=== PATIENT | female | born 1975 | race Caucasian/White ===

== ENCOUNTER 2017-06-27 08:46 | Inpatient (IN) ==
[2017-06-27] MEDS ORDERED: Ondansetron 4 MG/2 ML VIAL IVP ONE (08:58)
[2017-06-27] MEDS ORDERED: 0.9 % Sodium Chloride 1,000 ML IVC ONE (08:58)
--- NOTE | 2017-06-27 09:07 | Emergency Department Note ---
Disposition Clinical Impression: Dehydration, Metabolic acidosis, Hypokalemia Disposition: Admitted As Inpatient Condition: Good Referrals: Ava Ruiz, COMPUTER SCIENCE PROFESSOR [Primary Care Provider] - Forms: Work/School Release, ED Satisfaction Letter Time of Disposition: 11:30 Abdominal Pain HPI - General Chief Complaint: ED Abdominal Pain Stated Complaint: stomach pain, nausea and vomiting Source: patient - History of Present Illness HPI Narrative: Patient presents to the emergency department for evaluation of nausea and vomiting. She states that she is been having nausea and vomiting since Friday. Denies blood in her stool or blood in her emesis. She states that her last bowel movement was several days ago. She complains of some minimal intermittent cramping in the epigastric region but denies any significant pain. She denies chest pain shortness of breath or diaphoresis. She denies dysuria or urinary frequency urgency or decreased urination. She denies fever or chills. She states that she is been diagnosed with gastroparesis and this is similar to her episodes related to her gastroparesis in the past. She has seen gastroenterology in the past and was being considered for gastric pacemaker at that time, she has a follow-up appointment with a second diamond broker in the future. She is been prescribed Reglan in the past but states that she could not tolerate that medication and therefore she does not currently take any medication for her gastroparesis. Pain Scale: 6 - Related Data Home Medications Medication Instructions Recorded Confirmed Acetaminophen w/Cod 300-30 mg 1 each PO Q6HR PRN 10/26/15 06/27/17 [Tylenol w/Codeine #3] Linagliptin [Tradjenta] 5 mg PO DAILY 06/27/17 06/27/17 hydroCHLOROthiazide 25 mg PO DAILY 06/27/17 06/27/17 [Hydrochlorothiazide] Previous Rx's Medication Instructions Recorded Promethazine [Phenergan] 25 mg PO Q6HR PRN #14 tablet 11/26/16 Allergies Allergy/AdvReac Type Severity Reaction Status Date / Time sulfamethoxazole Allergy Rash Verified 10/26/15 21:14 [From Bactrim] trimethoprim [From Bactrim] Allergy Rash Verified 10/26/15 21:14 scopolamine AdvReac Hallucinati Verified 10/26/15 21:14 ng Constitutional: Denies: fever, chills Eyes: Denies: vision change ENT ED: Denies: congestion Cardiovascular: Denies: chest pain, palpitations Respiratory: Denies: cough Gastrointestinal: Reports: as per HPI Genitourinary: Denies: dysuria, frequency, hematuria, discharge Musculoskeletal: Denies: back pain, neck pain, arthralgia, myalgia Integumentary: Denies: rash, abrasion, lesions Neurological: Denies: headache Endocrine: Denies: fatigue Abdominal Pain PMH - Past Medical History Medical history: Reports: diabetes, other Female Surgical History: Reports: , cholecystectomy, hysterectomy, orthopedic, other, Tonsillectomy PLANNING ASSOCIATE history: Reports: non-contributory Psychiatric history: Reports: no psych history - Social History Smoking status: Current every day smoker Alcohol use: Reports: occasionally Drug use: Reports: none Physical Exam - General Limitations: no limitations General appearance: alert, in no apparent distress - Eye Eye exam: Present: normal appearance, PERRL, EOMI - ENT ENT exam: normal exam, normal oropharynx, mucous membranes moist - Respiratory Respiratory exam: Present: normal lung sounds bilaterally - Cardiovascular Cardiovascular exam: Present: regular rate, normal rhythm, normal heart sounds - Abdominal Exam Abdominal exam: Present: soft, Non-Tender, normal bowel sounds. Absent: tenderness, distention, guarding, rebound, rigidity - Extremities Exam Extremities exam: Present: normal inspection, full ROM. Absent: tenderness, pedal edema, calf tenderness - Expanded Lower Extremity Exam Neurovascular/Tendon exam: Present: normal capillary refill - Neurological Exam Neurological exam: Present: alert, oriented X3 - Psychiatric Psychiatric exam: Present: normal affect, normal mood - Skin Skin exam: Present: warm, dry, intact, normal color Course Course Narrative: Patient resting comfortably, patient does have a metabolic acidosis with positive ketones though pH is not significantly abnormal and glucose is only 269. I discussed the case with Dr. Lombardo, we will defer an insulin drip at this time and treat with fluids and electrolyte replacement and monitor her response to that treatment at this time. Vital Signs Temperature 98.8 F 06/27/17 08:48 Pulse Rate 109 06/27/17 08:48 Respiratory Rate 16 06/27/17 08:48 Blood Pressure 119/86 06/27/17 08:48 O2 Sat by Pulse Oximetry 98 06/27/17 08:48 Temperature 98.8 F 06/27/17 08:48 Pulse Rate 88 06/27/17 11:26 Respiratory Rate 17 06/27/17 11:26 Blood Pressure 123/52 06/27/17 11:26 O2 Sat by Pulse Oximetry 97 06/27/17 11:26 Oxygen Delivery Oxygen Delivery Room Air Abdominal Pain - Lab Data Lab results reviewed: Yes I reviewed the patient's lab results. Result diagrams: 06/27/17 09:08 06/27/17 09:08 Lab Results 06/27/17 06/27/17 06/27/17 Range/Units 09:05 09:08 09:08 WBC 10.3 (4.3-11.1) K/mcL RBC 4.99 H (3.82-4.97) M/mcL Hgb 15.8 H (11.5-15.4) g/dL Hct 43.5 (35.3-44.9) % MCV 87.2 (83.0-100.0) fL MCH 31.7 (28.0-33.3) pg MCHC 36.3 H (31.6-35.5) g/dL RDW 12.5 (11.5-14.5) % Plt Count 246 (140-400) K/mcL MPV 9.7 (9.4-12.4) fL Immature Gran % 0.6 (0-4) % Seg Neutrophils % 68.7 % Lymphocytes % 19.1 % Monocytes % 9.6 % Eosinophils % 1.3 % Basophils % 0.7 % Neutrophils # 7.1 (1.6-8.9) K/mcL Lymphocytes # 2.0 (0.6-4.6) K/mcL Monocytes # 1.0 (0.0-1.3) K/mcL Eosinophils # 0.1 (0.0-0.6) K/mcL Basophils # 0.1 (0.0-0.2) K/mcL VBG pH (7.32-7.42) pH Units VBG pCO2 (41-51) mmHg VBG pO2 (25-40) mmHg VBG HCO3 (21-27) mEq/L Sodium 136 (136-145) mEq/L Potassium 2.9 L (3.5-4.5) mEq/L Chloride 97 L (98-109) mEq/L Carbon Dioxide 16 L (19-29) mEq/L BUN 5 L (7-20) mg/dL Creatinine 0.71 (0.57-1.11) mg/dL Est GFR ( Amer) > 60 (> 60) Est GFR (Non-Af Amer) > 60 (> 60) BUN/Creatinine Ratio 7 (6-26) Glucose 269 H (70-99) mg/dL Calculated Osmolality 289 (280-300) Calcium 9.3 (8.6-10.8) mg/dL Total Bilirubin 0.7 (0.2-1.2) mg/dL Direct Bilirubin 0.3 (0.0-0.5) mg/dL Indirect Bilirubin 0.4 (0.0-1.2) mg/dL AST 13 (5-34) Units/L ALT 15 (0-55) Units/L Alkaline Phosphatase 44 (38-126) Units/L Troponin I (0-0.03) ng/mL Serum Total Protein 7.0 (6.0-8.3) g/dL Albumin 3.7 (3.5-5.0) g/dL Globulin 3.3 (2.4-3.5) g/dL Albumin/Globulin Ratio 1.1 (1.1-2.2) Amylase 46 (25-125) Units/L Lipase 12 (8-78) Units/L Beta-Hydroxybutyric Acd (0.02-0.27) mmol/L Urine Color Yellow (Yellow) Urine Clarity Clear (Clear) Urine pH 6.0 (5.0-8.0) pH Units Ur Specific Nimitz 1.020 (1.010-1.025) Urine Protein 30 H (Neg-Trace) mg/dL Urine Glucose (UA) 500 H (Normal) mg/dL Urine Ketones >=160 H (Negative) mg/dL Urine Blood Trace-lysed H (Negative) Urine Nitrite Negative (Negative) Urine Bilirubin Moderate H (Negative) Urine Urobilinogen Normal (Normal) mg/dL Ur Leukocyte Esterase Negative (Negative) Urine Microscopic RBC 0-3 (0-3) per hpf Urine Microscopic WBC 5-15 H (0-3) per hpf Ur Squamous Epith Cells Few (None-Few) per lpf Urine Bacteria Few (None-Few) per hpf Hyaline Casts Few (None-Few) per lpf Granular Casts Few H (None Seen) per lpf Urine Mucus Moderate H (Few) Ur Culture Indicated? YES A (NO) Urine Test (Negative) Salicylates (15-30) mg/dL 06/27/17 06/27/17 06/27/17 Range/Units 09:08 09:10 09:26 WBC (4.3-11.1) K/mcL RBC (3.82-4.97) M/mcL Hgb (11.5-15.4) g/dL Hct (35.3-44.9) % MCV (83.0-100.0) fL MCH (28.0-33.3) pg MCHC (31.6-35.5) g/dL RDW (11.5-14.5) % Plt Count (140-400) K/mcL MPV (9.4-12.4) fL Immature Gran % (0-4) % Seg Neutrophils % % Lymphocytes % % Monocytes % % Eosinophils % % Basophils % % Neutrophils # (1.6-8.9) K/mcL Lymphocytes # (0.6-4.6) K/mcL Monocytes # (0.0-1.3) K/mcL Eosinophils # (0.0-0.6) K/mcL Basophils # (0.0-0.2) K/mcL VBG pH (7.32-7.42) pH Units VBG pCO2 (41-51) mmHg VBG pO2 (25-40) mmHg VBG HCO3 (21-27) mEq/L Sodium (136-145) mEq/L Potassium (3.5-4.5) mEq/L Chloride (98-109) mEq/L Carbon Dioxide (19-29) mEq/L BUN (7-20) mg/dL Creatinine (0.57-1.11) mg/dL Est GFR ( Amer) (> 60) Est GFR (Non-Af Amer) (> 60) BUN/Creatinine Ratio (6-26) Glucose (70-99) mg/dL Calculated Osmolality (280-300) Calcium (8.6-10.8) mg/dL Total Bilirubin (0.2-1.2) mg/dL Direct Bilirubin (0.0-0.5) mg/dL Indirect Bilirubin (0.0-1.2) mg/dL AST (5-34) Units/L ALT (0-55) Units/L Alkaline Phosphatase (38-126) Units/L Troponin I 0.00 (0-0.03) ng/mL Serum Total Protein (6.0-8.3) g/dL Albumin (3.5-5.0) g/dL Globulin (2.4-3.5) g/dL Albumin/Globulin Ratio (1.1-2.2) Amylase (25-125) Units/L Lipase (8-78) Units/L Beta-Hydroxybutyric Acd > 2.00 H (0.02-0.27) mmol/L Urine Color (Yellow) Urine Clarity (Clear) Urine pH (5.0-8.0) pH Units Ur Specific Nimitz (1.010-1.025) Urine Protein (Neg-Trace) mg/dL Urine Glucose (UA) (Normal) mg/dL Urine Ketones (Negative) mg/dL Urine Blood (Negative) Urine Nitrite (Negative) Urine Bilirubin (Negative) Urine Urobilinogen (Normal) mg/dL Ur Leukocyte Esterase (Negative) Urine Microscopic RBC (0-3) per hpf Urine Microscopic WBC (0-3) per hpf Ur Squamous Epith Cells (None-Few) per lpf Urine Bacteria (None-Few) per hpf Hyaline Casts (None-Few) per lpf Granular Casts (None Seen) per lpf Urine Mucus (Few) Ur Culture Indicated? (NO) Urine Test Negative (Negative) Salicylates (15-30) mg/dL 06/27/17 06/27/17 Range/Units 10:18 10:18 WBC (4.3-11.1) K/mcL RBC (3.82-4.97) M/mcL Hgb (11.5-15.4) g/dL Hct (35.3-44.9) % MCV (83.0-100.0) fL MCH (28.0-33.3) pg MCHC (31.6-35.5) g/dL RDW (11.5-14.5) % Plt Count (140-400) K/mcL MPV (9.4-12.4) fL Immature Gran % (0-4) % Seg Neutrophils % % Lymphocytes % % Monocytes % % Eosinophils % % Basophils % % Neutrophils # (1.6-8.9) K/mcL Lymphocytes # (0.6-4.6) K/mcL Monocytes # (0.0-1.3) K/mcL Eosinophils # (0.0-0.6) K/mcL Basophils # (0.0-0.2) K/mcL VBG pH 7.36 (7.32-7.42) pH Units VBG pCO2 41.7 (41-51) mmHg VBG pO2 31.2 (25-40) mmHg VBG HCO3 23.6 (21-27) mEq/L Sodium (136-145) mEq/L Potassium (3.5-4.5) mEq/L Chloride (98-109) mEq/L Carbon Dioxide (19-29) mEq/L BUN (7-20) mg/dL Creatinine (0.57-1.11) mg/dL Est GFR ( Amer) (> 60) Est GFR (Non-Af Amer) (> 60) BUN/Creatinine Ratio (6-26) Glucose (70-99) mg/dL Calculated Osmolality (280-300) Calcium (8.6-10.8) mg/dL Total Bilirubin (0.2-1.2) mg/dL Direct Bilirubin (0.0-0.5) mg/dL Indirect Bilirubin (0.0-1.2) mg/dL AST (5-34) Units/L ALT (0-55) Units/L Alkaline Phosphatase (38-126) Units/L Troponin I (0-0.03) ng/mL Serum Total Protein (6.0-8.3) g/dL Albumin (3.5-5.0) g/dL Globulin (2.4-3.5) g/dL Albumin/Globulin Ratio (1.1-2.2) Amylase (25-125) Units/L Lipase (8-78) Units/L Beta-Hydroxybutyric Acd (0.02-0.27) mmol/L Urine Color (Yellow) Urine Clarity (Clear) Urine pH (5.0-8.0) pH Units Ur Specific Nimitz (1.010-1.025) Urine Protein (Neg-Trace) mg/dL Urine Glucose (UA) (Normal) mg/dL Urine Ketones (Negative) mg/dL Urine Blood (Negative) Urine Nitrite (Negative) Urine Bilirubin (Negative) Urine Urobilinogen (Normal) mg/dL Ur Leukocyte Esterase (Negative) Urine Microscopic RBC (0-3) per hpf Urine Microscopic WBC (0-3) per hpf Ur Squamous Epith Cells (None-Few) per lpf Urine Bacteria (None-Few) per hpf Hyaline Casts (None-Few) per lpf Granular Casts (None Seen) per lpf Urine Mucus (Few) Ur Culture Indicated? (NO) Urine Test (Negative) Salicylates < 5.0 L (15-30) mg/dL ITS Impressions Abdomen/Pelvis CT 06/27/17 09:00 IMPRESSION: 1. Bilateral nephrolithiasis. 2. Constipation. D/ / Wu Graf MD / Wu Graf MD Interpreting Provider: Wu Graf MD - Radiology Data Radiology results reviewed: Yes I reviewed the patient's radiology results.
[2017-06-27 09:17] LABS: Bilirubin,Urine Moderate (Negative); Blood,Urine Trace-lysed (Negative); Clarity,Urine Clear (Clear); Color,Urine Yellow (Yellow); Glucose,Urine (UA) 500 mg/dL (Normal); Ketones,Urine >=160 mg/dL (Negative); Leukocyte Esterase,Urine Negative (Negative); Nitrite,Urine Negative (Negative); Protein,Urine 30 mg/dL (Neg-Trace); Urobilinogen,Urine Normal (Normal)
[2017-06-27 09:28] LABS: Basophils # 0.1 K/mcL (0.0-0.2); Basophils % 0.7 %; Eosinophils # 0.1 K/mcL (0.0-0.6); Eosinophils % 1.3 %; Hematocrit 43.5 % (35.3-44.9); Hemoglobin 15.8 g/dL (11.5-15.4); Immature Granulocytes % 0.6 % (0-4); Lymphocytes % 19.1 %; Mean Corpuscular HGB Conc 36.3 g/dL (31.6-35.5); Mean Corpuscular Hemoglobin 31.7 pg (28.0-33.3); Mean Corpuscular Volume 87.2 fL (83.0-100.0); Mean Platelet Volume 9.7 fL (9.4-12.4); Monocytes % 9.6 %; Neutrophils # 7.1 K/mcL (1.6-8.9); Platelet Count 246 K/mcL (140-400); Red Blood Count 4.99 M/mcL (3.82-4.97); Red Cell Distribution Width 12.5 % (11.5-14.5); Segmented Neutrophils % 68.7 %
[2017-06-27 09:32] LABS: Bacteria,Urine Few per hpf (None-Few); Granular Casts,Urine Few per lpf (None Seen); Hyaline Casts,Urine Few per lpf (None-Few); Mucus,Urine Moderate (Few); RBC,Urine 0-3 per hpf (0-3); Squamous Epithelial Cell,Urine Few per lpf (None-Few)
[2017-06-27 09:42] LABS: Alanine Aminotransferase 15 Units/L (0-55); Albumin 3.7 g/dL (3.5-5.0); Albumin/Globulin Ratio 1.1 (1.1-2.2); Alkaline Phosphatase 44 Units/L (38-126); Amylase 46 Units/L (25-125); Aspartate Amino Transferase 13 Units/L (5-34); BUN/Creatinine Ratio 7 (6-26); Bilirubin,Direct 0.3 mg/dL (0.0-0.5); Bilirubin,Indirect 0.4 mg/dL (0.0-1.2); Bilirubin,Total 0.7 mg/dL (0.2-1.2); Calcium 9.3 mg/dL (8.6-10.8); Carbon Dioxide 16 mEq/L (19-29); Chloride 97 mEq/L (98-109); Globulin 3.3 g/dL (2.4-3.5); Glucose 269 mg/dL (70-99); Lipase 12 Units/L (8-78); Osmolality,Calculated 289 (280-300); Potassium 2.9 mEq/L (3.5-4.5); Sodium 136 mEq/L (136-145); eGFR For African Americans > 60 (> 60); eGFR For Non-African Americans > 60 (> 60)
[2017-06-27 09:53] LABS: Blood Urea Nitrogen 5 mg/dL (7-20)
[2017-06-27] MEDS ORDERED: 0.9 % Sodium Chloride w KCl 20 MEQ/1,000 ML MLS IVC SCH (10:15)
[2017-06-27] MEDS ORDERED: *HR* Promethazine 25 MG/ML VIAL IM ONE (10:32)
[2017-06-27 10:40] LABS: VBG HCO3 23.6 mEq/L (21-27); VBG PCO2 41.7 mmHg (41-51); VBG PH 7.36 pH Units (7.32-7.42); VBG PO2 31.2 mmHg (25-40)
[2017-06-27] MEDS ORDERED: Naloxone 0.4 MG/ML INJ IVP PRN (11:31)
[2017-06-27] MEDS ORDERED: *HR* Acetaminophen w/Cod 300-30 mg 1 TAB TABLET PO PRN (12:51)
[2017-06-27] MEDS ORDERED: Ondansetron 4 MG/2 ML VIAL IVP PRN (14:09)
--- NOTE | 2017-06-27 15:38 | Internal Med History&Physical ---
Date of Encounter: 06/27/17 Time of Encounter: 15:00 Assessment and Plan (1) Hypokalemia Current visit: Yes Status: Acute Suspect secondary to vomiting and use of HCTZ. She has been ordered replacement IV and oral potassium. Will recheck labs in a.m. (2) Ketonemia Current visit: No Status: Acute We will give IV fluids and recheck labs in a.m. (3) Diabetes mellitus Current visit: No Status: Acute Will check hemoglobin A1c in a.m. Continue Accu-Cheks with SSI. Qualifiers: Diabetes mellitus type: type 2 Diabetes mellitus complication status: with hyperglycemia Diabetes mellitus [facility] insulin use: without [facility] use Qualified Code(s): E11.65 - Type 2 diabetes mellitus with hyperglycemia Internal Medicine - H&P: HPI Chief complaint: Vomiting and weakness Admitted From: Home Plans for Post Hospital Care: Home History of present illness: Ms. Buchanan is a 41 year old female who came to emergency room stating she had onset of vomiting June 25. She had multiple episodes of vomiting over the next 2 days. She felt lightheaded and dizzy this morning as she was preparing to come to work. She came to emergency room and was evaluated and found to have significant hypokalemia. She was admitted to [facility] floor for ongoing care needs. She has had previous similar episodes before. She has been diagnosed with gastroparesis felt to be secondary to DM 2 which was diagnosed at age 36. Most recent hemoglobin A1c was 7.9% on 01/22/2017. She takes hydrochlorothiazide for edema but denies hypertension. Endocrine history is negative for known thyroid disease or hyperlipidemia. Past Med Surg Social Fam HX - Past Medical History Medical history: diabetes, other Psychiatric history: no psych history - Past Surgical History Surgical History: orthopedic, other - Social History Smoking Status: Current every day smoker Packs per day: 1 Smokeless Tobacco Status: No Alcohol use: occasionally Drug use: none Internal Medicine - H&P: Meds Acetaminophen w/Cod 300-30 mg [Tylenol w/Codeine #3] 1 each PO Q6HR PRN [History] Promethazine [Phenergan] 25 mg PO Q6HR PRN #14 tablet 11/26/16 [Rx] Linagliptin [Tradjenta] 5 mg PO DAILY 06/27/17 [History] hydroCHLOROthiazide [Hydrochlorothiazide] 25 mg PO DAILY 06/27/17 [History] Allergies sulfamethoxazole [From Bactrim] Allergy (Verified 10/26/15 21:14) Rash trimethoprim [From Bactrim] Allergy (Verified 10/26/15 21:14) Rash scopolamine Adverse Reaction (Verified 10/26/15 21:14) Hallucinating All Systems PM: A 10-system review of systems was performed and is negative for pertinent findings except as documented above in the HPI. Review of systems: Gen.: She states her weight had been stable for several months until an 18 pound weight loss in the last month primarily due to poor intake and recent vomiting. She reports weighing 340 pounds 5 years ago but intentionally lost weight. Cardiovascular: She has had edema and uses HCTZ. She denies hypertension MA heart failure angina DVT or pulmonary embolus Respiratory: She is smoked since age 16 up to 2 packs per day. She denies known chronic lung disease and does not use home oxygen. She has had negative testing for [facility]LROY GI: She has had cholecystectomy. She denies disorders of her liver or exocrine pancreas : She denies hematuria dysuria or kidney stones. She thinks she has a vaginal yeast infection at the present time Neurologic: No history of large distribution strokes or seizures. 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 She uses an occasional Tylenol #3. She denies gout or other bone joint or muscle disorders. - Constitutional Vitals: Temp Pulse Resp BP Pulse Ox 98.6 F 79 14 110/65 98 06/27/17 13:35 06/27/17 13:35 06/27/17 13:35 06/27/17 13:35 06/27/17 13:35 Exam: Gen.: She is a well-developed well-nourished female lying quietly in bed and appears in no acute distress HEENT: Head is atraumatic and normocephalic. Eyes: EOMI. There is no scleral icterus. Mouth: Mucosa is moist. Neck: Supple and nontender. There is no thyromegaly or adenopathy noted. Heart: Regular without murmurs gallops or ectopics Lungs: No wheezes or crackles are heard. Abdomen: Soft and nontender. No masses or guarding noted. Extremities: There is no cyanosis edema or clubbing noted. Dorsalis pedis and posttibial pulses are 1-2 over 2 bilaterally. Neurologic: Mental status: She is talkative and a good historian. Cranial nerves: Smile is symmetric. Forehead wrinkles bilaterally. Tongue protrudes midline. EOMI. Motor: There is no pronator drift. Cerebellar: Fair to nose is intact bilaterally. Skin: Warm and dry Internal Med - H&P Results - Labs CBC & Chem 7: 06/27/17 09:08 06/27/17 09:08
[2017-06-27] MEDS: 0.9 % Sodium Chloride w KCl 20 MEQ/1,000 ML MLS IVC SCH (20:11)
[2017-06-27] MEDS: Nicotine 21 MG PATCH.TD24 TD SCH (20:12)
[2017-06-28 05:17] LABS: Basophils # 0.1 K/mcL (0.0-0.2); Basophils % 0.8 %; Eosinophils # 0.2 K/mcL (0.0-0.6); Eosinophils % 2.4 %; Hemoglobin 12.8 g/dL (11.5-15.4); Immature Granulocytes % 0.8 % (0-4); Lymphocytes # 2.6 K/mcL (0.6-4.6); Lymphocytes % 40.8 %; Mean Corpuscular HGB Conc 34.6 g/dL (31.6-35.5); Mean Corpuscular Hemoglobin 31.1 pg (28.0-33.3); Mean Platelet Volume 9.8 fL (9.4-12.4); Monocytes # 0.7 K/mcL (0.0-1.3); Monocytes % 10.4 %; Neutrophils # 2.9 K/mcL (1.6-8.9); Platelet Count 190 K/mcL (140-400); Red Blood Count 4.11 M/mcL (3.82-4.97); Red Cell Distribution Width 12.8 % (11.5-14.5); Segmented Neutrophils % 44.8 %
[2017-06-28] MEDS: 0.9 % Sodium Chloride w KCl 20 MEQ/1,000 ML MLS IVC SCH (05:42)
[2017-06-28 05:45] LABS: BUN/Creatinine Ratio 8 (6-26); Calcium 8.3 mg/dL (8.6-10.8); Carbon Dioxide 19 mEq/L (19-29); Chloride 108 mEq/L (98-109); Glucose 255 mg/dL (70-99); Osmolality,Calculated 298 (280-300); Potassium 3.7 mEq/L (3.5-4.5); Sodium 141 mEq/L (136-145); eGFR For African Americans > 60 (> 60); eGFR For Non-African Americans > 60 (> 60)
[2017-06-28 05:53] LABS: Blood Urea Nitrogen 5 mg/dL (7-20)
[2017-06-28 05:55] LABS: Beta-Hydroxybutyric Acid > 2.00 mmol/L (0.02-0.27)
[2017-06-28] MEDS ORDERED: *HR* Enoxaparin 40 MG/0.4 ML SYRINGE SQ SCH (06:00)
[2017-06-28] MEDS ORDERED: Fluconazole 100 MG TABLET PO ONE (06:54)
[2017-06-28 07:31] VITALS: BP 91/60
[2017-06-28] MEDS: Nicotine 21 MG PATCH.TD24 TD SCH (07:59)
--- NOTE | 2017-06-28 08:34 | Discharge Summary ---
Date of Encounter: 06/28/17 Time of Encounter: 08:25 - Discharge Diagnosis (1) Hypokalemia Priority: Primary Status: Resolved (2) Ketonemia Priority: Secondary Status: Acute (3) Diabetes mellitus Priority: Secondary Status: Chronic Qualifiers: Diabetes mellitus type: type 2 Diabetes mellitus complication status: with hyperglycemia Diabetes mellitus terminal makeup operator insulin use: without senior living use Qualified Code(s): E11.65 - Type 2 diabetes mellitus with hyperglycemia - Discharge Medications Home Medications: Acetaminophen w/Cod 300-30 mg [Tylenol w/Codeine #3] 1 each PO Q6HR PRN [History] Promethazine [Phenergan] 25 mg PO Q6HR PRN #14 tablet 11/26/16 [Rx] Linagliptin [Tradjenta] 5 mg PO DAILY 06/27/17 [History] Allergies/Adverse Reactions: Allergies sulfamethoxazole [From Bactrim] Allergy (Verified 10/26/15 21:14) Rash trimethoprim [From Bactrim] Allergy (Verified 10/26/15 21:14) Rash scopolamine Adverse Reaction (Verified 10/26/15 21:14) Hallucinating Date of admission: 06/27/17 16:23 Primary care physician: Ava Ruiz CNP - Patient Status Disposition: Home, Self-Care Condition: Good Functional capacity at discharge: independent ambulation Overall status at discharge: patient is progressing back to baseline - Discharge Instructions Follow Up With: Ava Ruiz CNP [Primary Care Provider] - 1 week - Diet and Activity Activity: resume usual activities as tolerated Diet: diabetic diet Hospital course: Ms. Buchanan is a 41 year old female who came to emergency room stating she had onset of vomiting June 25. She had multiple episodes of vomiting over the next 2 days. She felt lightheaded and dizzy this morning as she was preparing to come to work. She came to emergency room and was evaluated and found to have significant hypokalemia. She was admitted to [facility] floor for ongoing care needs. Initial orders were written by the emergency room physician. I saw her on June 27 and performed the history and physical. Hydrochlorothiazide was discontinued. She was given IV fluids and replacement potassium. Hypokalemia normalized by the following day with potassium 3.7. She had no further vomiting after admission. When I saw her June 28 she felt improved and stable for discharge home which I felt was reasonable. She will remain off HCTZ. She will follow with her PCP Ava Ruiz CNP within 1 week. Hemoglobin A1c was ordered with results pending at time of discharge. - Time Spent with Patient Total time spent providing and/or coordinating discharge services: - Constitutional Vitals: Temp Pulse Resp BP Pulse Ox 98.4 F 97 18 91/60 96 06/28/17 06:36 06/28/17 07:29 06/28/17 06:36 06/28/17 07:29 06/28/17 06:36
[2017-06-28] MEDS ORDERED: METHYLTESTOSTERONE PO SCH (09:00)
[2017-06-28 14:12] LABS: Hemoglobin A1C 11.2 %
== END 2017-06-28 09:00 | disposition home or self-care (01) | DRG 641 ==
LOC: EMEROOPIK 08:46 → INPPIK 08:46
PROVIDERS: ADMIT Internal Medicine; ATTEND Internal Medicine

== ENCOUNTER 2017-10-20 15:19 | Observation (INO) ==
[2017-10-20] MEDS ORDERED: Ondansetron 4 MG/2 ML VIAL IVP ONE (15:36)
--- NOTE | 2017-10-20 15:40 | Emergency Department Note ---
Disposition Clinical Impression: Uncontrolled diabetes mellitus Qualifiers: Diabetes mellitus type: type 2 Diabetes mellitus complication status: without complication Diabetes mellitus watermaster insulin use: with watermaster use Qualified Code(s): E11.65 - Type 2 diabetes mellitus with hyperglycemia; Z79.4 - local intermodal truck driver (current) use of insulin; Z79.4 - local intermodal truck driver (current) use of insulin ; Z79.4 - local intermodal truck driver (current) use of insulin; Z79.4 - care home (current) use of insulin Disposition: Admitted As Inpatient Condition: Good Referrals: Ava Ruiz, HOTEL SERVICES SUPERVISOR [Primary Care Provider] - Forms: ED Satisfaction Letter Time of Disposition: 17:20 Nausea/Vomiting/Diarrhea HPI - General Chief complaint: ED Nausea/Vomiting/Diarrhea Stated complaint: Blood sugar >600, vomiting Time Seen by Provider: 10/20/17 15:35 Source: patient Mode of arrival: ambulatory Limitations: no limitations Nursing Notes Reviewed: Yes Vital Signs Reviewed: Yes - History of Present Illness HPI Narrative: 42-year-old white female, insulin-dependent diabetic, vomiting since Friday. She vomited 2-3 times a day. Her blood sugars of been running high, an excess of 600. She states her blood sugars have always been difficult to control, she was diagnosed with diabetes at age 35. She is on a long-acting insulin the morning, and short acting insulin with meals. She states her blood sugar has always been very labile. She states she has been very thirsty since Friday, has been urinating frequently. No recent illness. No fever. No cough. No diarrhea. She went to her primary care provider's office and was sent here for evaluation. Pt Subjective Complaint: nausea, vomiting, other (Elevated blood sugar) Onset (ago): day(s) Description of emesis: food contents Number of episodes of emesis: 3 (Per day) Associated Abdominal Pain: No Context: other (Diabetic with history of DKA in July) Associated symptoms: Reports: denies other symptoms - Related Data Home Medications Medication Instructions Recorded Confirmed Acetaminophen w/Cod 300-30 mg 1 each PO Q6HR PRN 10/26/15 10/20/17 [Tylenol w/Codeine #3] Linagliptin [Tradjenta] 5 mg PO DAILY 06/27/17 10/20/17 Previous Rx's Medication Instructions Recorded Promethazine [Phenergan] 25 mg PO Q6HR PRN #14 tablet 11/26/16 Allergies Allergy/AdvReac Type Severity Reaction Status Date / Time sulfamethoxazole Allergy Rash Verified 10/26/15 21:14 [From Bactrim] trimethoprim [From Bactrim] Allergy Rash Verified 10/26/15 21:14 scopolamine AdvReac Hallucinati Verified 10/26/15 21:14 ng All systems ED: reviewed and negative except as stated. Constitutional: Denies: fever, chills Eyes: Denies: vision change ENT ED: Denies: ear pain, throat pain Cardiovascular: Denies: chest pain, palpitations Respiratory: Denies: cough, dyspnea Gastrointestinal: Reports: nausea, vomiting. Denies: abdominal pain, diarrhea Genitourinary: Reports: frequency. Denies: urgency, dysuria Musculoskeletal: Denies: back pain, neck pain Integumentary: Denies: rash Past Medical History - Past Medical History Medical history: Reports: diabetes, other Surgical history: Reports: orthopedic, other Psychiatric history: Reports: no psych history ALLERGIST IMMUNOLOGIST history: Reports: other - Social History Smoking Status: Former smoker Smokeless Tobacco Status: No Alcohol use: Reports: occasionally Drug use: Reports: none Physical Exam - General Limitations: no limitations General appearance: alert, in no apparent distress - Head Head exam: atraumatic, normocephalic - Eye Eye exam: Present: PERRL, EOMI. Absent: scleral icterus, conjunctival injection - ENT ENT exam: normal oropharynx, TM's normal bilaterally - Neck Neck exam: Present: normal inspection, full ROM, trachea midline. Absent: tenderness, lymphadenopathy - Respiratory Respiratory exam: Present: normal lung sounds bilaterally. Absent: respiratory distress, wheezes - Cardiovascular Cardiovascular exam: Present: regular rate, normal rhythm, normal heart sounds - Abdominal Exam Abdominal exam: Present: soft, Non-Tender, normal bowel sounds. Absent: organomegaly, mass - Extremities Exam Extremities exam: Present: normal inspection, full ROM, normal capillary refill - Neurological Exam Neurological exam: Present: alert, oriented X3, normal gait. Absent: motor sensory deficit - Psychiatric Psychiatric exam: Present: normal affect, normal mood - Skin Skin exam: Present: warm, dry, intact, normal color. Absent: cyanosis, diaphoresis Course - Reevaluation(s) Reevaluation #1: Nausea is improved. No vomiting here in the emergency department. Vital signs remained stable. I discussed the case with the hospitalist, Dr. Lombardo. The patient will be admitted to an observation bed for further treatment. Time: 17:18 Vital Signs Temperature 97.9 F 10/20/17 15:21 Pulse Rate 106 10/20/17 15:21 Respiratory Rate 18 10/20/17 15:21 Blood Pressure 115/81 10/20/17 15:21 O2 Sat by Pulse Oximetry 95 10/20/17 15:21 Temperature 97.9 F 10/20/17 15:21 Pulse Rate 88 10/20/17 16:45 Respiratory Rate 17 10/20/17 16:45 Blood Pressure 112/69 10/20/17 16:45 O2 Sat by Pulse Oximetry 97 10/20/17 16:45 Oxygen Delivery Oxygen Delivery Room Air Nausea/Vomiting/Diarrhea - MDM Narrative Medical decision making narrative: Differential includes but is not limited to DKA, uncontrolled diabetes mellitus , urinary tract infection, viral gastroenteritis, gastritis The patient is hyperglycemic, with vomiting. Her pH is normal, her bicarbonate is mildly decreased, and she does have ketones in her urine and serum. This certainly could be an early DKA. She can be managed by IV hydration and sliding scale insulin. I discussed case with the hospitalist, Dr. Lombardo. He will admit to an observation bed. - Lab Data Lab results reviewed: Yes I reviewed the patient's lab results. Result diagrams: 10/20/17 15:56 10/20/17 15:56 Lab Results 10/20/17 10/20/17 10/20/17 Range/Units 15:30 15:56 15:56 WBC 11.2 H (4.3-11.1) K/mcL RBC 4.81 (3.82-4.97) M/mcL Hgb 15.1 (11.5-15.4) g/dL Hct 41.5 (35.3-44.9) % MCV 86.3 (83.0-100.0) fL MCH 31.4 (28.0-33.3) pg MCHC 36.4 H (31.6-35.5) g/dL RDW 11.4 L (11.5-14.5) % Plt Count 306 (140-400) K/mcL MPV 9.3 L (9.4-12.4) fL Immature Gran % 0.4 (0-4) % Seg Neutrophils % 65.7 % Lymphocytes % 26.4 % Monocytes % 5.4 % Eosinophils % 1.4 % Basophils % 0.7 % Neutrophils # 7.4 (1.6-8.9) K/mcL Lymphocytes # 3.0 (0.6-4.6) K/mcL Monocytes # 0.6 (0.0-1.3) K/mcL Eosinophils # 0.2 (0.0-0.6) K/mcL Basophils # 0.1 (0.0-0.2) K/mcL VBG pH (7.32-7.42) pH Units VBG pCO2 (41-51) mmHg VBG pO2 (25-50) mmHg VBG HCO3 (21-27) mEq/L Sodium 131 L (136-145) mEq/L Potassium 3.9 (3.5-4.5) mEq/L Chloride 98 (98-109) mEq/L Carbon Dioxide 18 L (19-29) mEq/L BUN 10 (7-20) mg/dL Creatinine 0.98 (0.57-1.11) mg/dL Est GFR ( Amer) > 60 (> 60) Est GFR (Non-Af Amer) > 60 (> 60) BUN/Creatinine Ratio 10 (6-26) Glucose 400 H (70-99) mg/dL Calculated Osmolality 288 (280-300) Calcium 9.4 (8.6-10.8) mg/dL Total Bilirubin 0.3 (0.2-1.2) mg/dL AST 11 (5-34) Units/L ALT 9 (0-55) Units/L Alkaline Phosphatase 51 (38-126) Units/L Serum Total Protein 7.7 (6.0-8.3) g/dL Albumin 4.0 (3.5-5.0) g/dL Globulin 3.7 H (2.4-3.5) g/dL Albumin/Globulin Ratio 1.1 (1.1-2.2) Beta-Hydroxybutyric Acd > 2.00 H (0.02-0.27) mmol/L Urine Color Light Yellow (Yellow) Urine Clarity Clear (Clear) Urine pH 5.5 (5.0-8.0) pH Units Ur Specific [place] 1.010 (1.010-1.025) Urine Protein Negative (Neg-Trace) mg/dL Urine Glucose (UA) 500 H (Normal) mg/dL Urine Ketones >=160 H (Negative) mg/dL Urine Blood Moderate H (Negative) Urine Nitrite Negative (Negative) Urine Bilirubin Small H (Negative) Urine Urobilinogen Normal (Normal) mg/dL Ur Leukocyte Esterase Negative (Negative) Urine Microscopic RBC 5-15 H (0-3) per hpf Urine Microscopic WBC 0-3 (0-3) per hpf Ur Squamous Epith Cells Many H (None-Few) per lpf Ur Culture Indicated? NO (NO) 10/20/17 Range/Units 16:12 WBC (4.3-11.1) K/mcL RBC (3.82-4.97) M/mcL Hgb (11.5-15.4) g/dL Hct (35.3-44.9) % MCV (83.0-100.0) fL MCH (28.0-33.3) pg MCHC (31.6-35.5) g/dL RDW (11.5-14.5) % Plt Count (140-400) K/mcL MPV (9.4-12.4) fL Immature Gran % (0-4) % Seg Neutrophils % % Lymphocytes % % Monocytes % % Eosinophils % % Basophils % % Neutrophils # (1.6-8.9) K/mcL Lymphocytes # (0.6-4.6) K/mcL Monocytes # (0.0-1.3) K/mcL Eosinophils # (0.0-0.6) K/mcL Basophils # (0.0-0.2) K/mcL VBG pH 7.34 (7.32-7.42) pH Units VBG pCO2 36 L (41-51) mmHg VBG pO2 77 H (25-50) mmHg VBG HCO3 20 L (21-27) mEq/L Sodium (136-145) mEq/L Potassium (3.5-4.5) mEq/L Chloride (98-109) mEq/L Carbon Dioxide (19-29) mEq/L BUN (7-20) mg/dL Creatinine (0.57-1.11) mg/dL Est GFR ( Amer) (> 60) Est GFR (Non-Af Amer) (> 60) BUN/Creatinine Ratio (6-26) Glucose (70-99) mg/dL Calculated Osmolality (280-300) Calcium (8.6-10.8) mg/dL Total Bilirubin (0.2-1.2) mg/dL AST (5-34) Units/L ALT (0-55) Units/L Alkaline Phosphatase (38-126) Units/L Serum Total Protein (6.0-8.3) g/dL Albumin (3.5-5.0) g/dL Globulin (2.4-3.5) g/dL Albumin/Globulin Ratio (1.1-2.2) Beta-Hydroxybutyric Acd (0.02-0.27) mmol/L Urine Color (Yellow) Urine Clarity (Clear) Urine pH (5.0-8.0) pH Units Ur Specific [place] (1.010-1.025) Urine Protein (Neg-Trace) mg/dL Urine Glucose (UA) (Normal) mg/dL Urine Ketones (Negative) mg/dL Urine Blood (Negative) Urine Nitrite (Negative) Urine Bilirubin (Negative) Urine Urobilinogen (Normal) mg/dL Ur Leukocyte Esterase (Negative) Urine Microscopic RBC (0-3) per hpf Urine Microscopic WBC (0-3) per hpf Ur Squamous Epith Cells (None-Few) per lpf Ur Culture Indicated? (NO) - Radiology Data Radiology results reviewed: Yes I reviewed the patient's radiology results. Impressions Chest X-Ray 10/20/17 15:36 IMPRESSION: No acute process. D/ / Jonas Colón MD / Jonas Colón MD Interpreting Provider: Jonas Colón MD - EKG Data EKG attestation: Yes I reviewed and interpreted this EKG. EKG results narrative: Sinus rhythm, rate of 99, no acute ST-T wave changes. Rhythm strip shows sinus rhythm with rate of 99, MN 140 ms, QRS 89 ms with no other ectopy as interpreted by me. Compared to a tracing dated 09/03/16, no significant change.
[2017-10-20] MEDS ORDERED: 0.9 % Sodium Chloride 1,000 ML IVC SCH ×2 (15:45→17:44)
[2017-10-20 15:56] LABS: Bilirubin,Urine Small (Negative); Blood,Urine Moderate (Negative); Clarity,Urine Clear (Clear); Glucose,Urine (UA) 500 mg/dL (Normal); Ketones,Urine >=160 mg/dL (Negative); Leukocyte Esterase,Urine Negative (Negative); Nitrite,Urine Negative (Negative); PH,Urine 5.5 pH Units (5.0-8.0); Protein,Urine Negative (Neg-Trace); Urobilinogen,Urine Normal (Normal)
[2017-10-20 16:05] LABS: Basophils # 0.1 K/mcL (0.0-0.2); Basophils % 0.7 %; Eosinophils # 0.2 K/mcL (0.0-0.6); Eosinophils % 1.4 %; Hematocrit 41.5 % (35.3-44.9); Hemoglobin 15.1 g/dL (11.5-15.4); Immature Granulocytes % 0.4 % (0-4); Lymphocytes % 26.4 %; Mean Corpuscular HGB Conc 36.4 g/dL (31.6-35.5); Mean Corpuscular Hemoglobin 31.4 pg (28.0-33.3); Mean Corpuscular Volume 86.3 fL (83.0-100.0); Mean Platelet Volume 9.3 fL (9.4-12.4); Monocytes # 0.6 K/mcL (0.0-1.3); Monocytes % 5.4 %; Neutrophils # 7.4 K/mcL (1.6-8.9); Platelet Count 306 K/mcL (140-400); Red Blood Count 4.81 M/mcL (3.82-4.97); Red Cell Distribution Width 11.4 % (11.5-14.5); Segmented Neutrophils % 65.7 %
[2017-10-20 16:07] LABS: Color,Urine Light Yellow (Yellow)
[2017-10-20 16:15] LABS: VBG HCO3 20 mEq/L (21-27); VBG PCO2 36 mmHg (41-51); VBG PH 7.34 pH Units (7.32-7.42); VBG PO2 77 mmHg (25-50)
[2017-10-20 16:24] LABS: Alanine Aminotransferase 9 Units/L (0-55); Albumin/Globulin Ratio 1.1 (1.1-2.2); Alkaline Phosphatase 51 Units/L (38-126); Aspartate Amino Transferase 11 Units/L (5-34); BUN/Creatinine Ratio 10 (6-26); Bilirubin,Total 0.3 mg/dL (0.2-1.2); Blood Urea Nitrogen 10 mg/dL (7-20); Calcium 9.4 mg/dL (8.6-10.8); Carbon Dioxide 18 mEq/L (19-29); Chloride 98 mEq/L (98-109); Globulin 3.7 g/dL (2.4-3.5); Glucose 400 mg/dL (70-99); Osmolality,Calculated 288 (280-300); Potassium 3.9 mEq/L (3.5-4.5); Sodium 131 mEq/L (136-145); Total Protein 7.7 g/dL (6.0-8.3); eGFR For African Americans > 60 (> 60); eGFR For Non-African Americans > 60 (> 60)
[2017-10-20] MEDS ORDERED: *HR* Promethazine 25 MG/ML VIAL IVP PRN ×3 (16:27→17:44)
[2017-10-20 16:29] LABS: Beta-Hydroxybutyric Acid > 2.00 mmol/L (0.02-0.27)
[2017-10-20] MEDS ORDERED: Insulin Human Regular 10 UNIT in 0.9 % Sodium Chloride 10 ML IV ONE (16:29)
[2017-10-20 16:45] LABS: Squamous Epithelial Cell,Urine Many per lpf (None-Few); WBC,Urine 0-3 per hpf (0-3)
[2017-10-20] MEDS ORDERED: *HR* Dextrose 50 % in Water (Syg) 50 ML SYRINGE IVP PRN (17:44)
[2017-10-20] MEDS ORDERED: Naloxone 0.4 MG/ML INJ IVP PRN (17:44)
[2017-10-20] MEDS ORDERED: D5% in Water 1,000 ML IVC PRN (17:44)
[2017-10-20] MEDS ORDERED: Dextrose Gel 15 GM PO PRN ×2 (17:44)
[2017-10-20] MEDS ORDERED: Insulin LISPRO 300 UNITS/3 ML VIAL SQ SCH ×2 (18:00→21:00)
[2017-10-20 18:18] LABS: BUN/Creatinine Ratio 10 (6-26); Blood Urea Nitrogen 8 mg/dL (7-20); Calcium 8.8 mg/dL (8.6-10.8); Carbon Dioxide 20 mEq/L (19-29); Chloride 104 mEq/L (98-109); Glucose 203 mg/dL (70-99); Osmolality,Calculated 284 (280-300); Potassium 3.4 mEq/L (3.5-4.5); Sodium 135 mEq/L (136-145); eGFR For African Americans > 60 (> 60); eGFR For Non-African Americans > 60 (> 60)
[2017-10-20] MEDS: 0.9 % Sodium Chloride 1,000 ML IVC SCH ×2 (19:12→23:50)
[2017-10-20 22:07] LABS: Hemoglobin A1C 10.5 %
[2017-10-20] MEDS: *HR* Promethazine 25 MG/ML VIAL IVP PRN (23:58)
[2017-10-21] MEDS ORDERED: *HR* Promethazine 25 MG/ML VIAL IVP SCH
[2017-10-21] MEDS: *HR* Promethazine 25 MG/ML VIAL IVP PRN ×2 (04:09→12:04)
[2017-10-21] MEDS: Insulin LISPRO 300 UNITS/3 ML VIAL SQ SCH ×2 (07:57→12:04)
[2017-10-21 11:32] VITALS: BP 134/84
--- NOTE | 2017-10-21 14:20 | Electrocardiograph Report ---
[address] [address] Test Date: 2017-10-20 Pat Name: Nicki Buchanan Department: [id number] Room: [facility] Gender: F Clinical Quality Assurance Specialist: [id number] : 1975 Requested By: Ramu Leyva Order Number: [id number] Reading MD: Belinda Mckeon Measurements Intervals [place] Rate: 99 P: 65 GA: 140 QRS: 47 QRSD: 89 T: 38 QT: 339 QTc: 395 Interpretive Statements SINUS RHYTHM Electronically Signed On 10-21-2017 14:18:44 EST by Belinda Mckeon
--- NOTE | 2017-10-21 14:29 | Internal Med History&Physical ---
Date of Encounter: 10/21/17 Time of Encounter: 14:00 Assessment and Plan (1) Vomiting Current visit: Yes Status: Acute Possibly multifactorial etiology including gastroparesis with acute gastroenteritis. Qualifiers: Vomiting type: unspecified Vomiting Intractability: non-intractable Nausea presence: with nausea Qualified Code(s): R11.2 - Nausea with vomiting, unspecified Internal Medicine - H&P: HPI Chief complaint: Vomiting Admitted From: Home Plans for Post Hospital Care: Home History of present illness: Ms. Buchanan is a 42 year old female who came to emergency room stating she had onset of vomiting October 17. This continued intermittently over the next few days. She felt progressively weaker. She quit taking her long-acting insulin to avoid hypoglycemia. She saw her PCP October 20 who recommended she come to emergency room. She was evaluated and found to have hyperglycemia, mild hypokalemia, and ketosis. She was admitted to [facility] floor for ongoing care needs. She states she feels significantly better now and wishes to be discharged home. She has not vomited since coming to the emergency room. She denies significant pain. She has been diagnosed with diabetic gastroparesis. She was diagnosed with DM 2 at age 36. She checks her blood sugars regularly at home. She has no known thyroid disease or hyperlipidemia. Past Med Surg Social Fam HX - Past Medical History Medical history: diabetes, other Psychiatric history: anxiety, depression - Past Surgical History Surgical History: cholecystectomy, hysterectomy, orthopedic, other - Social History Smoking Status: Former smoker Smokeless Tobacco Status: No Alcohol use: occasionally Drug use: none Internal Medicine - H&P: Meds Acetaminophen w/Cod 300-30 mg [Tylenol w/Codeine #3] 1 each PO Q6HR PRN [History] Promethazine [Phenergan] 25 mg PO Q6HR PRN #14 tablet 11/26/16 [Rx] Linagliptin [Tradjenta] 5 mg PO DAILY 06/27/17 [History] 3 Allergy/AdvReac Type Severity Reaction Status Date / Time sulfamethoxazole Allergy Rash Verified 10/26/15 21:14 [From Bactrim] trimethoprim [From Bactrim] Allergy Rash Verified 10/26/15 21:14 scopolamine AdvReac Hallucinati Verified 10/26/15 21:14 ng All Systems PM: A 10-system review of systems was performed and is negative for pertinent findings except as documented above in the HPI. Review of systems: Review of systems from her May 2017 [facility] hospitalization were reviewed and revised as below. Gen.: Her weight is increased from 80.02 kg on 06/28/2017 to 93.44 kg on admission. She reports weighing 340 pounds 5 years ago but intentionally lost weight. Cardiovascular: She has had edema and uses HCTZ. She denies hypertension UT heart failure angina DVT or pulmonary embolus Respiratory: She smoked from age [age] up to 2 packs per day. She states she quit smoking 3 weeks ago. She denies known chronic lung disease and does not use home oxygen. She has had negative testing for [place] GI: She has had cholecystectomy. She denies disorders of her liver or exocrine pancreas : She denies hematuria or dysuria. She reports she passed kidney stone a few days ago. Neurologic: No history of large distribution strokes or seizures. 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 She uses an occasional Tylenol #3. She denies gout or other bone joint or muscle disorders. - Constitutional Vitals: Temp Pulse Resp BP Pulse Ox 98.1 F 75 16 134/84 96 10/21/17 11:25 10/21/17 11:25 10/21/17 11:25 10/21/17 11:25 10/21/17 11:25 Exam: Gen.: She is a well-developed well-nourished female who appears in no severe distress at present time HEENT: Head is atraumatic and normocephalic. Eyes: EOMI. There is no scleral icterus. Mouth: Mucosa is moist. Neck: Supple and nontender. There is no thyromegaly or adenopathy noted. Heart: Regular without murmurs gallops or ectopics Lungs: No wheezes or crackles are heard. Abdomen: Soft and nontender. No masses or guarding are noted. Extremities: There is no cyanosis edema or clubbing noted. Dorsalis pedis and posterior tibial pulses are 2/2 bilaterally. Neurologic: Mental status: She is talkative and a good historian. Cranial nerves: Smile is symmetric. Forehead wrinkles bilaterally. Tongue protrudes midline. EOMI. Motor: There is no pronator drift. Cerebellar: Finger to nose is intact bilaterally. Skin: Warm and dry. Internal Med - H&P Results - Labs CBC & Chem 7: 10/20/17 15:56 10/20/17 17:57 Labs: BMP 10/20/17 17:57 Sodium 135 L Potassium 3.4 L Chloride 104 Carbon Dioxide 20 BUN 8 Creatinine 0.78 Glucose 203 H Calcium 8.8
--- NOTE | 2017-10-21 14:40 | Discharge Summary ---
Date of Encounter: 10/21/17 Time of Encounter: 14:00 - Discharge Diagnosis (1) Vomiting Priority: Primary Status: Acute Qualifiers: Vomiting type: unspecified Vomiting Intractability: non-intractable Nausea presence: with nausea Qualified Code(s): R11.2 - Nausea with vomiting, unspecified - Discharge Medications Prescriptions: Promethazine [Phenergan] 25 mg PO Q6HR PRN #12 tablet PRN Reason: Nausea Home Medications: Acetaminophen w/Cod 300-30 mg [Tylenol w/Codeine #3] 1 each PO Q6HR PRN [History] Linagliptin [Tradjenta] 5 mg PO DAILY 06/27/17 [History] Promethazine [Phenergan] 25 mg PO Q6HR PRN #12 tablet 10/21/17 [Rx] Allergies/Adverse Reactions: 3 Allergy/AdvReac Type Severity Reaction Status Date / Time sulfamethoxazole Allergy Rash Verified 10/26/15 21:14 [From Bactrim] trimethoprim [From Bactrim] Allergy Rash Verified 10/26/15 21:14 scopolamine AdvReac Hallucinati Verified 10/26/15 21:14 ng Date of admission: 10/20/17 17:42 Primary care physician: vAa Ruiz CNP - Patient Status Disposition: Home, Self-Care Condition: Good Functional capacity at discharge: independent ambulation Overall status at discharge: patient is progressing back to baseline - Discharge Instructions Follow Up With: Ava Ruiz CNP [Primary Care Provider] - 1 week - Diet and Activity Activity: resume usual activities as tolerated Diet: diabetic diet Hospital course: Ms. Buchanan is a 42 year old female who came to emergency room stating she had onset of vomiting October 17. This continued intermittently over the next few days. She felt progressively weaker. She quit taking her long-acting insulin to avoid hypoglycemia. She saw her PCP October 20 who recommended she come to emergency room. She was evaluated and found to have hyperglycemia, mild hypokalemia, and ketosis. She was admitted to [facility] floor for ongoing care needs. Initial orders were written by the emergency room physician. I saw her afternoon of October 21 and performed the history physical and discharge. She was started on IV fluids with Accu-Cheks and SSI. Her blood sugars returned to acceptable range. She felt clinically improved at the time I saw her and reported she had tolerated adequate amounts of food and fluids. She wished to be discharged home which I felt was reasonable. She will resume her home dose of basal insulin and continue Accu-Cheks with SSI and other medications. I gave her prescription for 12 Phenergan pills for use when necessary. She will follow with her PCP Ava Ruiz CNP within 1 week. - Time Spent with Patient Total time spent providing and/or coordinating discharge services: - Constitutional Vitals: Temp Pulse Resp BP Pulse Ox 98.1 F 75 16 134/84 96 10/21/17 11:25 10/21/17 11:25 10/21/17 11:25 10/21/17 11:25 10/21/17 11:25
[2017-10-21] MEDS ORDERED: FLUARIX QUAD 2017-18 36MOS UP/PF 0.5 ML SYRINGE IM ONE (14:51)
== END 2017-10-21 03:10 | disposition home or self-care (01) ==
LOC: INPPIK 15:19 → EMEROOPIK 15:19 → INPPIK 18:03
PROVIDERS: ADMIT Internal Medicine; ATTEND Internal Medicine

== ENCOUNTER 2020-06-25 10:21 | Observation (INO) ==
[2020-06-25] MEDS ORDERED: Aspirin 81 MG TAB.CHEW PO ONE (11:06)
[2020-06-25] MEDS ORDERED: Nitroglycerin 1 INCH/GM PACKET TP ONE (11:06)
[2020-06-25 11:18] LABS: Bilirubin,Urine Moderate (Negative); Blood,Urine Trace-intact (Negative); Clarity,Urine Slightly Cloudy (Clear); Color,Urine Yellow (Yellow); Glucose,Urine (UA) Normal (Normal); Ketones,Urine >=160 mg/dL (Negative); Leukocyte Esterase,Urine Negative (Negative); Nitrite,Urine Negative (Negative); Protein,Urine 30 mg/dL (Neg-Trace); Specific Gravity,Urine 1.025 (1.010-1.025); Urobilinogen,Urine Normal (Normal)
[2020-06-25 11:24] LABS: Bacteria,Urine Few per hpf (None-Few); Mucus,Urine Moderate per lpf (None-Few); Squamous Epithelial Cell,Urine Many per hpf (None-Few)
[2020-06-25] MEDS ORDERED: *HR* Promethazine 25 MG/ML VIAL IVP ONE (11:26)
[2020-06-25 11:27] LABS: Basophils # 0.1 K/mcL (0.0-0.2); Basophils % 0.6 %; Eosinophils % 0.2 %; Hematocrit 43.9 % (35.3-44.9); Hemoglobin 15.1 g/dL (11.5-15.4); Immature Granulocytes % 0.4 % (0-4); Lymphocytes # 1.5 K/mcL (0.6-4.6); Lymphocytes % 14.9 %; Mean Corpuscular HGB Conc 34.4 g/dL (31.6-35.5); Mean Corpuscular Hemoglobin 30.8 pg (28.0-33.3); Mean Corpuscular Volume 89.6 fL (83.0-100.0); Mean Platelet Volume 9.3 fL (9.4-12.4); Monocytes # 0.5 K/mcL (0.0-1.3); Monocytes % 4.9 %; Neutrophils # 7.9 K/mcL (1.6-8.9); Platelet Count 344 K/mcL (140-400); Red Cell Distribution Width 12.9 % (11.5-14.5); White Blood Count 9.9 K/mcL (4.3-11.1)
[2020-06-25 11:38] LABS: INR 1.1; Prothrombin Time 12.3 Seconds (9.4-12.1)
[2020-06-25 11:40] LABS: Activated Partial Thrombo Time 22.7 Seconds (26.0-36.0)
[2020-06-25 11:49] LABS: Troponin I < 0.03 ng/mL (< 0.04)
[2020-06-25 11:52] LABS: BUN/Creatinine Ratio 21 (6-26); Blood Urea Nitrogen 14 mg/dL (6-20); Calcium 9.3 mg/dL (8.6-10.3); Carbon Dioxide 22 mEq/L (23-29); Chloride 102 mEq/L (98-107); Glucose 260 mg/dL (70-105); Osmolality,Calculated 293 (280-300); Potassium 3.7 mEq/L (3.5-5.1); Sodium 137 mEq/L (136-145); eGFR For African Americans > 60 (> 60); eGFR For Non-African Americans > 60 (> 60)
[2020-06-25 11:54] LABS: Albumin 4.2 g/dL (3.5-5.7); Albumin/Globulin Ratio 1.5 (1.1-2.2); Bilirubin,Direct 0.1 mg/dL (0.0-0.2); Bilirubin,Indirect 0.6 mg/dL (0.0-1.0); Bilirubin,Total 0.7 mg/dL (0.3-1.0); Globulin 2.8 g/dL (2.4-3.5)
[2020-06-25] MEDS ORDERED: GI Cocktail 40 ML EACH PO ONE (12:11)
[2020-06-25] MEDS ORDERED: Pantoprazole 40 MG VIAL IVP ONE (12:12)
[2020-06-25] MEDS ORDERED: Naloxone 0.4 MG/ML INJ IVP PRN (12:55)
[2020-06-25] MEDS ORDERED: Nitroglycerin 0.4 MG TAB.SUBL SL PRN (12:55)
[2020-06-25 13:57] LABS: Chol/HDL Ratio 4.8 (0-4.9)
[2020-06-25] MEDS: 0.9 % Sodium Chloride 1,000 ML IVC SCH ×2 (14:14→21:55)
[2020-06-25] MEDS: Acetaminophen 325 MG TABLET PO PRN (14:40)
[2020-06-25] MEDS ORDERED: tiZANidine 4 MG TABLET PO PRN (15:05)
[2020-06-25] MEDS: [UNRECOGNIZED DRUG - OTHER] SQ SCH (16:45)
[2020-06-25] MEDS: Morphine Sulfate 2 MG/ML SYRINGE IVP PRN ×3 (16:55→23:00)
[2020-06-25] MEDS ORDERED: Metoclopramide 10 MG/2 ML VIAL IVP PRN (17:54)
[2020-06-25] MEDS: Ondansetron 4 MG/2 ML VIAL IVP PRN (19:04)
[2020-06-25] MEDS: Metoprolol 100 MG TABLET PO SCH (21:53)
[2020-06-25] MEDS: lisinopriL 20 MG TABLET PO SCH (21:53)
[2020-06-25] MEDS: *HR* LORazepam 1 MG TABLET PO PRN (21:53)
[2020-06-25] MEDS: *HR* Promethazine 25 MG/ML VIAL IVP PRN (23:00)
[2020-06-26 03:14] LABS: Alanine Aminotransferase 9 Units/L (7-52); Albumin 3.4 g/dL (3.5-5.7); Albumin/Globulin Ratio 1.5 (1.1-2.2); Alkaline Phosphatase 46 Units/L (34-104); Aspartate Amino Transferase 11 Units/L (13-39); BUN/Creatinine Ratio 12 (6-26); Bilirubin,Total 0.7 mg/dL (0.3-1.0); Blood Urea Nitrogen 8 mg/dL (6-20); Calcium 8.3 mg/dL (8.6-10.3); Carbon Dioxide 22 mEq/L (23-29); Chloride 103 mEq/L (98-107); Globulin 2.2 g/dL (2.4-3.5); Glucose 484 mg/dL (70-105); Magnesium 1.8 mg/dL (1.6-2.6); Osmolality,Calculated 298 (280-300); Potassium 3.8 mEq/L (3.5-5.1); Sodium 134 mEq/L (136-145); Total Protein 5.6 g/dL (6.4-8.9); eGFR For African Americans > 60 (> 60); eGFR For Non-African Americans > 60 (> 60)
[2020-06-26 03:18] LABS: Basophils # 0.1 K/mcL (0.0-0.2); Basophils % 0.6 %; Eosinophils # 0.1 K/mcL (0.0-0.6); Eosinophils % 0.9 %; Hematocrit 39.1 % (35.3-44.9); Hemoglobin 12.9 g/dL (11.5-15.4); Immature Granulocytes % 0.4 % (0-4); Lymphocytes # 2.5 K/mcL (0.6-4.6); Lymphocytes % 31.3 %; Mean Corpuscular Hemoglobin 30.1 pg (28.0-33.3); Mean Corpuscular Volume 91.1 fL (83.0-100.0); Mean Platelet Volume 9.4 fL (9.4-12.4); Monocytes # 0.8 K/mcL (0.0-1.3); Monocytes % 9.5 %; Neutrophils # 4.7 K/mcL (1.6-8.9); Platelet Count 259 K/mcL (140-400); Red Blood Count 4.29 M/mcL (3.82-4.97); Red Cell Distribution Width 12.8 % (11.5-14.5); Segmented Neutrophils % 57.3 %; White Blood Count 8.1 K/mcL (4.3-11.1)
[2020-06-26] MEDS: Ketorolac 30 MG/ML VIAL IVP PRN ×3 (03:31→20:27)
[2020-06-26] MEDS ORDERED: Insulin LISPRO 300 UNITS/3 ML VIAL SQ STA (06:59)
[2020-06-26] MEDS: *HR* Promethazine 25 MG/ML VIAL IVP PRN ×2 (08:35→17:57)
[2020-06-26] MEDS: Aspirin Enteric Coated 81 MG Tablet PO SCH (08:36)
[2020-06-26] MEDS: lisinopriL 20 MG TABLET PO SCH ×2 (08:36→20:27)
[2020-06-26] MEDS: Metoprolol 100 MG TABLET PO SCH ×2 (08:42→20:27)
[2020-06-26] MEDS: Acetaminophen 325 MG TABLET PO PRN ×2 (08:47→17:58)
[2020-06-26] MEDS ORDERED: Insulin DETEMIR 100 UNIT/ML X5UNITS SQ SCH ×2 (09:00→21:00)
[2020-06-26] MEDS ORDERED: Insulin LISPRO 300 UNITS/3 ML VIAL SQ ONE (10:29)
[2020-06-26] MEDS ORDERED: 0.9 % Sodium Chloride 1,000 ML ONE (10:30)
[2020-06-26] MEDS: 0.9 % Sodium Chloride 1,000 ML IVC SCH ×2 (10:47→20:28)
[2020-06-26] MEDS: Ondansetron 4 MG/2 ML VIAL IVP PRN (10:49)
[2020-06-26 13:56] LABS: VBG HCO3 22 mEq/L (21-27); VBG PCO2 31 mmHg (41-51); VBG PH 7.44 pH Units (7.32-7.42); VBG PO2 116 mmHg (25-50)
[2020-06-26] MEDS ORDERED: Dextrose Gel 15 GM/37.5 ML TUBE PO PRN ×2 (14:07)
[2020-06-26] MEDS ORDERED: D5% in Water 1,000 ML IVC PRN (14:07)
[2020-06-26] MEDS ORDERED: *HR* Dextrose 50 % in Water (Vial) 50 ML VIAL IVP PRN (14:07)
[2020-06-26] MEDS: Gabapentin 300 MG CAPSULE PO SCH ×2 (15:06→21:16)
[2020-06-26] MEDS: [UNRECOGNIZED DRUG - OTHER] SQ SCH (15:07)
[2020-06-26] MEDS: Insulin LISPRO 300 UNITS/3 ML VIAL SQ SCH (17:58)
[2020-06-26 19:05] LABS: Estimated Average Glucose 209 mg/dl
[2020-06-26] MEDS: *HR* LORazepam 1 MG TABLET PO PRN (20:27)
[2020-06-26] MEDS ORDERED: Gabapentin 300 MG CAPSULE PO SCH (21:00)
[2020-06-27] MEDS: Insulin LISPRO 300 UNITS/3 ML VIAL SQ SCH ×2 (00:40→04:59)
[2020-06-27] MEDS: 0.9 % Sodium Chloride 1,000 ML IVC SCH (04:41)
[2020-06-27] MEDS: Ketorolac 30 MG/ML VIAL IVP PRN (04:43)
[2020-06-27] MEDS: Ondansetron 4 MG/2 ML VIAL IVP PRN (04:46)
[2020-06-27] MEDS ORDERED: Insulin DETEMIR 100 UNIT/ML X5UNITS SQ SCH (09:00)
[2020-06-27] MEDS: lisinopriL 20 MG TABLET PO SCH (09:01)
[2020-06-27] MEDS: Ondansetron ODT 4 MG TAB.RAPDIS SL PRN ×2 (09:01→16:13)
[2020-06-27] MEDS: Aspirin Enteric Coated 81 MG Tablet PO SCH (09:01)
[2020-06-27] MEDS: Metoprolol 100 MG TABLET PO SCH (09:02)
[2020-06-27] MEDS: Gabapentin 300 MG CAPSULE PO SCH (09:02)
[2020-06-27] MEDS ORDERED: Lidocaine -MPF 1% 2 ML VIAL ID PRN (09:35)
[2020-06-27] MEDS ORDERED: CefTRIAXone 1,000 MG VIAL IM SCH (10:00)
[2020-06-27] MEDS ORDERED: cefTRIAXone 1,000 MG in 0.9 % Sodium Chloride Mini Bag 100 ML IVPB SCH (10:00)
[2020-06-27] MEDS ORDERED: *HR* HYDROcodone/Acet 7.5/325 mg TABLET PO PRN (10:58)
[2020-06-27] MEDS ORDERED: Insulin LISPRO 300 UNITS/3 ML VIAL SQ STA (14:58)
[2020-06-27] MEDS: [UNRECOGNIZED DRUG - OTHER] SQ SCH (15:21)
[2020-06-27 20:15] VITALS: BP 164/94
[2020-06-27] MEDS ORDERED: cloNIDine HCL 0.1 MG TABLET PO SCH (21:00)
[2020-06-27] MEDS ORDERED: Insulin LISPRO 300 UNITS/3 ML VIAL SQ SCH (21:00)
[2020-06-28] MEDS ORDERED: Insulin LISPRO 300 UNITS/3 ML VIAL SQ SCH (07:30)
== END 2020-06-27 19:30 | disposition home or self-care (01) ==
LOC: INPPIK 10:21 → EMEROOPIK 10:21 → INPPIK 13:37
PROVIDERS: ADMIT Family Medicine; ATTEND Family Medicine

== ENCOUNTER 2022-07-02 09:25 | Observation (INO) ==
[2022-07-02] MEDS ORDERED: 0.9 % Sodium Chloride 1,000 ML IV ONE (09:54)
[2022-07-02 09:55] LABS: Bilirubin,Urine Small (Negative); Blood,Urine Trace-intact (Negative); Clarity,Urine Clear (Clear); Color,Urine Yellow (Yellow); Glucose,Urine (UA) 500 mg/dL (Normal); Ketones,Urine >=160 mg/dL (Negative); Leukocyte Esterase,Urine Negative (Negative); Nitrite,Urine Negative (Negative); PH,Urine 5.5 pH Units (5.0-8.0); Protein,Urine 100 mg/dL (Neg-Trace); Specific Gravity,Urine >= 1.030 (1.010-1.025); Urobilinogen,Urine Normal (Normal)
[2022-07-02 10:22] LABS: Basophils # 0.1 K/mcL (0.0-0.2); Basophils % 0.8 %; Hematocrit 47.3 % (35.3-44.9); Hemoglobin 15.1 g/dL (11.5-15.4); Immature Granulocytes % 0.4 % (0-4); Lymphocytes # 0.9 K/mcL (0.6-4.6); Lymphocytes % 8.9 %; Mean Corpuscular HGB Conc 31.9 g/dL (31.6-35.5); Mean Corpuscular Hemoglobin 29.2 pg (28.0-33.3); Mean Corpuscular Volume 91.5 fL (83.0-100.0); Mean Platelet Volume 9.1 fL (9.4-12.4); Monocytes # 0.3 K/mcL (0.0-1.3); Monocytes % 2.6 %; Neutrophils # 8.5 K/mcL (1.6-8.9); Platelet Count 386 K/mcL (140-400); Red Blood Count 5.17 M/mcL (3.82-4.97); Red Cell Distribution Width 13.2 % (11.5-14.5); Segmented Neutrophils % 87.3 %; White Blood Count 9.8 K/mcL (4.3-11.1)
[2022-07-02 10:23] LABS: RBC,Urine 0-3 per hpf (0-3); Squamous Epithelial Cell,Urine Few per hpf (None-Few)
[2022-07-02 10:41] LABS: Troponin I < 0.03 ng/mL (< 0.04)
[2022-07-02] MEDS ORDERED: Ondansetron 4 MG/2 ML VIAL IVP ONE ×2 (10:41→14:54)
[2022-07-02] MEDS ORDERED: Ondansetron ODT 4 MG TAB.RAPDIS SL ONE (10:41)
[2022-07-02 10:42] LABS: Lipase 34 Units/L (11-82)
[2022-07-02 10:44] LABS: Alanine Aminotransferase 11 Units/L (7-52); Albumin 4.8 g/dL (3.5-5.7); Albumin/Globulin Ratio 1.5 (1.1-2.2); Alkaline Phosphatase 85 Units/L (34-104); Amylase 52 Units/L (29-103); Aspartate Amino Transferase 12 Units/L (13-39); BUN/Creatinine Ratio 15 (6-26); Bilirubin,Total 0.6 mg/dL (0.3-1.0); Blood Urea Nitrogen 16 mg/dL (6-20); Calcium 9.4 mg/dL (8.6-10.3); Carbon Dioxide 8 mEq/L (23-29); Chloride 96 mEq/L (98-107); Globulin 3.1 g/dL (2.4-3.5); Glucose 472 mg/dL (70-105); Osmolality,Calculated 292 (280-300); Potassium 4.9 mEq/L (3.5-5.1); Sodium 130 mEq/L (136-145); Total Protein 7.9 g/dL (6.4-8.9); eGFR For African Americans > 60 (> 60); eGFR For Non-African Americans 54 (> 60)
[2022-07-02] MEDS ORDERED: *HR* Dextrose 50 % in Water (Syg) 50 ML SYRINGE IVP PRN ×2 (11:06→17:16)
[2022-07-02] MEDS ORDERED: Insulin Human Regular 10 UNIT in 0.9 % Sodium Chloride 10 ML IV ONE (11:13)
[2022-07-02] MEDS ORDERED: Ketorolac 30 MG/ML VIAL IVP ONE (11:32)
[2022-07-02] MEDS ORDERED: 0.9 % Sodium Chloride 1,000 ML IVC SCH ×2 (12:45→15:39)
[2022-07-02 14:32] LABS: VBG HCO3 10 mEq/L (21-27); VBG PCO2 17 mmHg (41-51); VBG PH 7.38 pH Units (7.32-7.42); VBG PO2 204 mmHg (25-50)
[2022-07-02 14:43] LABS: BUN/Creatinine Ratio 16 (6-26); Blood Urea Nitrogen 16 mg/dL (6-20); Calcium 9.2 mg/dL (8.6-10.3); Carbon Dioxide 12 mEq/L (23-29); Chloride 107 mEq/L (98-107); Glucose 168 mg/dL (70-105); Osmolality,Calculated 285 (280-300); Potassium 4.3 mEq/L (3.5-5.1); Sodium 135 mEq/L (136-145); eGFR For African Americans > 60 (> 60); eGFR For Non-African Americans 58 (> 60)
[2022-07-02] MEDS ORDERED: Famotidine 20 MG/2 ML VIAL IVP ONE (14:54)
[2022-07-02] MEDS ORDERED: Naloxone 0.4 MG/ML INJ IVP PRN (15:35)
[2022-07-02] MEDS ORDERED: *HR* Promethazine 25 MG/ML VIAL IM ONE (15:37)
[2022-07-02] MEDS ORDERED: Furosemide 40 MG TABLET PO PRN (15:37)
[2022-07-02] MEDS ORDERED: D5% in Water 1,000 ML IVC PRN (17:16)
[2022-07-02] MEDS ORDERED: Dextrose Gel 15 GM/37.5 ML TUBE PO PRN ×2 (17:16)
[2022-07-02] MEDS: *HR* HYDROcodone/Acet 5/325 mg TABLET PO PRN (17:31)
[2022-07-02] MEDS: Sodium Bicarbonate 75 MEQ in 0.45 % Sodium Chloride 1,000 ML IVC SCH (18:46)
[2022-07-02] MEDS ORDERED: Insulin DETEMIR 100 UNIT/ML per UNIT SUBQ ONE (21:00)
[2022-07-02] MEDS ORDERED: Insulin LISPRO 300 UNITS/3 ML VIAL SUBQ SCH (21:00)
[2022-07-02] MEDS: *HR* Heparin 5,000 UNIT/ML VIAL SQ SCH (21:18)
[2022-07-02 21:23] LABS: BUN/Creatinine Ratio 18 (6-26); Blood Urea Nitrogen 17 mg/dL (6-20); Calcium 8.8 mg/dL (8.6-10.3); Carbon Dioxide 13 mEq/L (23-29); Chloride 107 mEq/L (98-107); Glucose 207 mg/dL (70-105); Osmolality,Calculated 284 (280-300); Potassium 4.9 mEq/L (3.5-5.1); Sodium 133 mEq/L (136-145); eGFR For African Americans > 60 (> 60); eGFR For Non-African Americans > 60 (> 60)
[2022-07-02] MEDS ORDERED: Acetaminophen 325 MG TABLET PO PRN (21:45)
[2022-07-03] MEDS: *HR* HYDROcodone/Acet 5/325 mg TABLET PO PRN (05:49)
[2022-07-03] MEDS: *HR* Heparin 5,000 UNIT/ML VIAL SQ SCH ×2 (06:00→14:55)
[2022-07-03] MEDS ORDERED: Ondansetron ODT 4 MG TAB.RAPDIS SL PRN (06:00)
[2022-07-03 06:36] LABS: Basophils % 0.6 %; Eosinophils # 0.2 K/mcL (0.0-0.6); Eosinophils % 3.2 %; Hematocrit 40.3 % (35.3-44.9); Hemoglobin 13.5 g/dL (11.5-15.4); Immature Granulocytes % 0.3 % (0-4); Lymphocytes # 2.3 K/mcL (0.6-4.6); Lymphocytes % 34.7 %; Mean Corpuscular HGB Conc 33.5 g/dL (31.6-35.5); Mean Corpuscular Hemoglobin 29.4 pg (28.0-33.3); Mean Corpuscular Volume 87.8 fL (83.0-100.0); Mean Platelet Volume 9.2 fL (9.4-12.4); Monocytes # 0.5 K/mcL (0.0-1.3); Monocytes % 8.3 %; Neutrophils # 3.4 K/mcL (1.6-8.9); Platelet Count 377 K/mcL (140-400); Red Blood Count 4.59 M/mcL (3.82-4.97); Red Cell Distribution Width 13.6 % (11.5-14.5); Segmented Neutrophils % 52.9 %; White Blood Count 6.5 K/mcL (4.3-11.1)
[2022-07-03 08:13] LABS: BUN/Creatinine Ratio 24 (6-26); Blood Urea Nitrogen 17 mg/dL (6-20); Calcium 8.8 mg/dL (8.6-10.3); Carbon Dioxide 20 mEq/L (23-29); Chloride 109 mEq/L (98-107); Glucose 52 mg/dL (70-105); Osmolality,Calculated 287 (280-300); Phosphorous 3.2 mg/dL (2.7-4.5); Potassium 3.6 mEq/L (3.5-5.1); Sodium 139 mEq/L (136-145); eGFR For African Americans > 60 (> 60); eGFR For Non-African Americans > 60 (> 60)
[2022-07-03] MEDS: Insulin LISPRO 300 UNITS/3 ML VIAL SUBQ SCH ×3 (08:21→16:37)
[2022-07-03] MEDS: Sodium Bicarbonate 75 MEQ in 0.45 % Sodium Chloride 1,000 ML IVC SCH (08:33)
[2022-07-03] MEDS ORDERED: Furosemide 40 MG TABLET PO ONE (09:00)
[2022-07-03] MEDS ORDERED: Ketorolac 30 MG/ML VIAL IVP ONE (12:23)
[2022-07-03 16:38] VITALS: BP 109/73; PULSE 66; RESP 15; TEMP 98; O2SAT 97
[2022-07-03] MEDS ORDERED: Insulin DETEMIR 100 UNIT/ML X5UNITS SUBQ SCH (21:00)
== END 2022-07-03 17:44 | disposition home or self-care (01) ==
LOC: EMEROOPIK 09:25 → INPPIK 09:25
PROVIDERS: ADMIT Internal Medicine; ATTEND Internal Medicine